=== PATIENT | male | born 1995 | race Caucasian/White ===

== ENCOUNTER 2018-12-18 09:27 | Emergency (ER) | payer OTHER ==
[2018-12-18 10:30] VITALS: BP 113/74
--- NOTE | 2018-12-18 10:49 | ER Report ---
History and Physical Time Seen By MD: 09:40 Hx. of Stated Complaint: FALL FROM LADDER HPI/ROS CHIEF COMPLAINT: Fell off a letter HISTORY OF PRESENT ILLNESS: Otherwise healthy 23-year-old male climbed up to letter was standing about 4 rungs from the top of the ladder slipped at the base fell straight down N on his feet no pain with ambulation no head or neck trauma no loss of consciousness some mild tenderness left elbow otherwise unremarkable little bit tenderness left knee was able to ambulate without issue patient simply here for evaluation patient has no focal complaints at presentation REVIEW OF SYSTEMS: Respiratory: No cough, no dyspnea. Cardiovascular: No chest pain, no palpitations. Gastrointestinal: No vomiting, no abdominal pain. Musculoskeletal: Left elbow left knee pain Remainder of the 14 system rev: Yes Allergies: Coded Allergies: No Known Drug Allergies (Unverified , 05/01/16) Home Meds No Active Prescriptions or Reported Meds Reviewed Nurses Notes: Yes Old Medical Records Reviewed: Yes Hx Smoking: No Smoking Status: Never Smoker Hx Substance Use Disorder: No Constitutional Vital Sign - Last 24 Hours 12/18/18 09:36 Temp 98.2 Pulse 68 Resp 16 B/P (MAP) 131/84 Pulse Ox 94 O2 Delivery Room Air Physical Exam General Appearance: The patient is alert, has no immediate need for airway protection and no current signs of toxicity. [ ] Eyes: Pupils equal and round no injection. Respiratory: Chest is non tender, lungs are clear to auscultation. Cardiac: regular rate and rhythm [ ] Gastrointestinal: Abdomen is soft and non tender, no masses, bowel sounds normal. Musculoskeletal: Left elbow examination is full range of motion and no pain with palpation of the lateral medial olecranon processes patient has no pain with supination or pronation full extension neurovascularly intact Knock-knee examination demonstrates some mild tenderness to palpation the knee but negative Radha's negative drawer signs no obvious bruising or ecchymosis able to ambulate without issue Neck is supple and non tender. Extremities have full range of motion and are non tender. Skin: No rashes or lesions. [ ] DIFFERENTIAL DIAGNOSIS: After history and physical exam differential diagnosis was considered for contusion Medical Decision Making ED Course/Re-evaluation ED Course ED clinical course 23-year-old male who fell off a ladder patient has no obvious signs of any external trauma no indication for imaging at this time patient had a negative examination we discharge diagnosis contusion and fall Decision to Disposition Date: Dec 18, 2018 Decision to Disposition Time: 10:48 Depart Departure Latest Vital Signs Vital Signs Date Time Temp Pulse Resp B/P (MAP) Pulse Ox O2 Delivery O2 Flow Rate FiO2 12/18/18 09:36 98.2 68 16 131/84 94 Room Air Impression: Primary Impression: Contusion, elbow Condition: Condition Unchanged Disposition: HOME OR SELF-CARE New Scripts No Active Prescriptions or Reported Meds Patient Instructions: Contusion in Adults (DC) SHAHEED STERLING MD Dec 18, 2018 10:49
--- NOTE | 2018-12-18 10:56 | RADIOLOGY IMAGING REPORT ---
FAC[place] [facility] [place] NAME: Steve Santoyo : 1995 MR: [id number] V: [id number] EXAM DATE: ORDERING PHYSICIAN: JUAN HEBERT TECHNOLOGIST: Location: [facility] Patient: Steve Santoyo : 1995 Visit/Account:[id number] Date of Sevice: 12/18/2018 ELBOW 3 VIEW LEFT History: Left elbow pain. Fell off ladder. Comparison study: None. Findings: There is no fracture or dislocation involving the left elbow. There is no joint effusion. There is no swelling over the olecranon process. IMPRESSION: Normal left elbow without findings of a fracture. Report Dictated By: Babatunde Reis MD at 12/18/2018 10:51 AM Report E-Signed By: Babatunde Reis MD at 12/18/2018 10:51 AM WSN:[email or web address]
--- NOTE | 2018-12-18 11:11 | RADIOLOGY IMAGING REPORT ---
FACILITY: [facility] - [place] PATIENT NAME: Steve Santoyo : 1995 MR: [id number] V: [id number] EXAM DATE: ORDERING PHYSICIAN: JUAN HEBERT TECHNOLOGIST: [place] [facility] [place] Steve Santoyo : 1995 Visit/Account:[id number] Date of Sevice: 12/18/[address] scan without contrast COMPARISONS: None ADDITIONAL PERTINENT HISTORY: Fall from ladder. TECHNIQUE: Multiple axial images were obtained from the skull base to the vertex without IV contrast . One of the following dose optimization techniques was utilized in the performance of this exam: Aut omated exposure control; adjustment of the mA and/or kV according to the patient's size; or use of an iterative reconstruction technique. Specific details can be referenced in the facility's radiology CT exam operational policy. FINDINGS: Midline shift: Negative Ventricles: Negative Brain parenchyma: Negative Extra-axial spaces: Negative Intracranial vasculature: Negative Osseous structures: Negative Paranasal sinuses and mastoid air cells: Negative Surrounding soft tissues and orbits: Negative IMPRESSION: Normal head CT scan without contrast. Report Dictated By: Bobby oRman MD at 12/18/2018 11:02 AM Report E-Signed By: Bobby Roman MD at 12/18/2018 11:04 AM WSN:[id number]
--- NOTE | 2018-12-18 11:12 | RADIOLOGY IMAGING REPORT ---
[place] [facility] [place]: Steve Santoyo : 1995 MR: [id number] V: [id number] EXAM DATE: ORDERING PHYSICIAN: JUAN HEBERT TECHNOLOGIST: Location: [facility] - [place] Patient: Steve Santoyo : 1995 Visit/Account:[id number] Date of Sevice: 12/18/2018 CT VERTEBRA CERVICAL (NON CON) COMPARISONS: None. ADDITIONAL PERTINENT HISTORY: Fall from ladder TECHNIQUE: Multiple axial images were obtained from the skull base through the upper thoracic spine with coronal and sagittal reformatted images obtained without IV contrast. One of the following dose optimization techniques was utilized in the performance of this exam: Automated exposure control; adj ustment of the mA and/or kV according to the patient's size; or use of an iterative reconstruction t echnique. Specific details can be referenced in the facility's radiology CT exam operational policy. FINDINGS. Vertebral body heights and alignment: Negative. Vertebral bodies: Negative. Disc spaces: None. Cranial cervical junction: Negative. Cervical thoracic junction: Negative. Surrounding soft tissues: Negative. Lung apices: Negative. IMPRESSION: Normal CT of the cervical spine without contrast. Report Dictated By: Bobby Roman MD at 12/18/2018 11:04 AM Report E-Signed By: Bobby Roman MD at 12/18/2018 11:06 AM WSN:[id number]
== END 2018-12-18 11:34 | disposition home or self-care (01) ==
LOC: ER 10:56
DX: S50.02XA Contusion of left elbow, initial encounter (principal); W11.XXXA Fall on and from ladder, initial encounter
CPT/HCPCS: 70450; 72125; 99284